=== PATIENT | female | born 1990 | race Caucasian/White ===

== ENCOUNTER 2022-11-29 07:39 | Outpatient (OUT) | payer BC, OTHER, SELFPAY ==
[2022-11-29 08:56] LABS: Estimated Average Glucose 82 mg/dL; Glycohemoglobin A1C 4.5 % (4.5-6.2)
== END 2022-11-29 07:40 | disposition home or self-care (01) ==
LOC: LAB 07:42
PROVIDERS: PCP Family Medicine; Visit Provider Family Medicine
DX: R73.9 Hyperglycemia, unspecified (principal)
CPT/HCPCS: 36415; 83036

== ENCOUNTER 2023-12-11 08:09 | Emergency (ER) | payer BC, OTHER, SELFPAY ==
[2023-12-11 08:15] VITALS: BP 131/77; PULSE 74; O2SAT 100; BMI 30.2
--- NOTE | 2023-12-11 08:32 | CT_ITS ---
[address] [address] Patient Name: YOVANI BEACH MRN: [id number] date: 1990 Sex: F Assigned Patient Location: ER Current Patient Location: .[facility] Accession/Order Number: [id number] Exam Date: 12/11/2023 08:54 Report Date: 12/11/2023 09:20 At the request of: MAURICIO ELLISON Procedure: CT abdomen pelvis wo con EXAMINATION: CT abdomen pelvis wo con HISTORY: pain R flank COMPARISON: No relevant comparison available. TECHNIQUE: Axial, Coronal, and Sagittal images were obtained without and/or with IV contrast as indicated by examination type. Dose reduction techniques were achieved by using automated exposure control and/or adjustment of mA and/or kV according to patient size and/or use of iterative reconstruction technique. FINDINGS: LUNG BASES: No visible pulmonary or pleural disease. LIVER: Stable anterior hepatic lobe cyst. No enlargement, atrophy, suspicious density, or significant focal lesion. BILIARY: No dilatation or calcification. PANCREAS: No lesion, fluid collection, or abnormal duct dilatation. SPLEEN: No enlargement or focal lesion. ADRENALS: No mass or enlargement. KIDNEYS: Mild right hydronephrosis secondary to a partially obstructing 4 x 4 x 3 mm stone within the proximal ureter. Nonobstructing 1-2 mm stone within the right and left kidney. BOWEL/MESENTERY: No visible mass, obstruction, or bowel wall thickening. AORTA/VASCULAR: No aneurysm or dissection. RETROPERITONEUM: No mass or adenopathy. LYMPH NODES: No adenopathy. URINARY BLADDER: No visible focal wall thickening, lesion, or calculus. PELVIC ORGANS: No visible mass. Pelvic organs appropriate for patient age. ABDOMINAL WALL: No mass or hernia. BONES: No bony lesion or fracture. OTHER: Negative. CT/CT abdomen pelvis wo con IMPRESSION: 1. Mild right hydronephrosis secondary to partially obstructing 4 mm stone within the proximal ureter. 2. In addition there is a nonobstructing 1-2 mm stone within the right kidney and within the left kidney. Electronically authenticated by: MELISSA HAYS Date: 12/11/2023 09:20
[2023-12-11] MEDS: ONDANSETRON PF 4 MG/2 ML VIAL IV (08:42)
[2023-12-11] MEDS: KETOROLAC TROMETHAMINE 30 MG/ML VIAL 15 MG IVP ×2 (08:42→09:53)
[2023-12-11 08:47] LABS: Basophils Percent Auto 0.7 % (0.2-2.0); Eosinophils Absolute Auto 0.1 10^3/uL (0.0-0.7); Eosinophils Percent Auto 1.6 % (0.9-7.0); Hematocrit 42.5 % (36.0-48.0); Hemoglobin 15.1 g/dL (12.0-16.0); Immature Granulocytes Abs Auto 0.01 10^3/uL (0.00-0.03); Immature Granulocytes Pct Auto 0.2 % (0.0-0.5); Lymphocytes Absolute Auto 1.8 10^3/uL (1.2-3.8); Lymphocytes Percent Auto 41.4 % (20.5-60.0); Mean Corpuscular HGB Conc 35.5 g/dL (29.9-35.2); Mean Corpuscular Hemoglobin 33.6 pg (26.7-34.0); Mean Corpuscular Volume 94.4 fL (81.0-99.0); Mean Platelet Volume 10.3 fL (9.5-13.5); Monocytes Absolute Auto 0.4 10^3/uL (0.3-0.8); Neutrophils Percent Auto 47.1 % (43.0-75.0); Platelet Count 232 10^3/uL (150-450); Red Cell Distribution Width 12.5 % (11.0-15.0); White Blood Count 4.3 10^3/uL (4.0-11.0)
[2023-12-11 09:02] VITALS: TEMP 36.5
[2023-12-11 09:02] LABS: Alanine Aminotransferase 21 U/L (14-59); Albumin Globulin Ratio 1.5; Albumin Level 4.1 g/dL (3.4-5.0); Alkaline Phosphatase 46 U/L (46-116); Anion Gap 14.4; Aspartate Amino Transferase 14 U/L (15-37); BUN Creatinine Ratio 4.4; Bilirubin Total 0.7 mg/dL (0.2-1.0); Calcium 9.5 mg/dL (8.5-10.1); Chloride 106 mmol/L (98-107); Estimated GFR (African America >60 (>=60 mL/min/1.73m^2); Estimated GFR (Non-African Ame >60 (>=60 mL/min/1.73m^2); Globulin 2.8 g/dL; Glucose 88 mg/dL (74-106); Potassium 3.4 mmol/L (3.5-5.1); Sodium 141 mmol/L (136-145); Total Protein 6.9 g/dL (6.4-8.2)
--- NOTE | 2023-12-11 09:46 | ED.ABDPAIN1 ---
HPI - Abdominal Pain General Chief Complaint: Abdominal Pain Stated Complaint: ABDOMINAL PAIN Time Seen by Provider: 12/11/23 08:12 Source: patient Mode of arrival: walk-in Related Data Previous Rx's ?Medication ?Instructions ?Recorded ondansetron 4 mg disintegrating 4 mg PO DAILY PRN nausea and 12/11/23 tablet vomiting #15 tabs oxycodone-acetaminophen 5 mg-325 1 tab PO Q6H #14 tabs 12/11/23 mg tablet (Percocet) Allergies Allergy/AdvReac Type Severity Reaction Status Date / Time No Known Drug Allergies Allergy Verified 12/11/23 08:18 PFSH PFSH Social History Little interest or pleasure in doing things: not at all Feeling down, depressed, or hopeless: not at all Exam Constitutional Vital Signs, click to edit/add: Last Vital Signs Temp 97.7 F 12/11/23 09:02 Pulse 74 12/11/23 08:15 Resp 20 12/11/23 08:15 BP 131/77 12/11/23 08:15 Pulse Ox 100 12/11/23 08:15 Course Vital Signs Vital signs: Vital Signs Pulse Rate 74 12/11/23 08:15 Respiratory Rate 20 12/11/23 08:15 Blood Pressure 131/77 12/11/23 08:15 Pulse Oximetry 100 12/11/23 08:15 Temperature 97.7 F 12/11/23 09:02 Pulse Rate 74 12/11/23 08:15 Respiratory Rate 20 12/11/23 08:15 Blood Pressure 131/77 12/11/23 08:15 Pulse Oximetry 100 12/11/23 08:15 MDM - Abdominal Pain Lab Data Labs: Lab Results 12/11/23 Range/Units 08:40 WBC 4.3 (4.0-11.0) 10^3/uL RBC 4.50 (4.20-5.40) 10^6/uL Hgb 15.1 (12.0-16.0) g/dL Hct 42.5 (36.0-48.0) % MCV 94.4 (81.0-99.0) fL MCH 33.6 (26.7-34.0) pg MCHC 35.5 H (29.9-35.2) g/dL RDW 12.5 (11.0-15.0) % Plt Count 232 (150-450) 10^3/uL MPV 10.3 (9.5-13.5) fL Neut % (Auto) 47.1 (43.0-75.0) % Lymph % (Auto) 41.4 (20.5-60.0) % [place] % (Auto) 9.0 (1.7-12.0) % Eos % (Auto) 1.6 (0.9-7.0) % Baso % (Auto) 0.7 (0.2-2.0) % Neut # (Auto) 2.0 (1.4-6.5) 10^3/uL Lymph # (Auto) 1.8 (1.2-3.8) 10^3/uL [place] # (Auto) 0.4 (0.3-0.8) 10^3/uL Eos # (Auto) 0.1 (0.0-0.7) 10^3/uL Baso # (Auto) 0.0 (0.0-0.1) 10^3/uL Abs Immat Gran (auto) 0.01 (0.00-0.03) 10^3/uL Imm/Tot Granulo (auto) 0.2 (0.0-0.5) % Sodium 141 (136-145) mmol/L Potassium 3.4 L (3.5-5.1) mmol/L Chloride 106 (98-107) mmol/L Carbon Dioxide 24.0 (21.0-32.0) mmol/L Anion Gap 14.4 BUN 4.0 L (7.0-18.0) mg/dL Creatinine 0.90 (0.55-1.02) mg/dL Est GFR ( Amer) >60 (>=60 mL/min/1.73m^2) Est GFR (Non-Af Amer) >60 (>=60 mL/min/1.73m^2) BUN/Creatinine Ratio 4.4 Glucose 88 (74-106) mg/dL Calcium 9.5 (8.5-10.1) mg/dL Total Bilirubin 0.7 (0.2-1.0) mg/dL AST 14 L (15-37) U/L ALT 21 (14-59) U/L Alkaline Phosphatase 46 (46-116) U/L Total Protein 6.9 (6.4-8.2) g/dL Albumin 4.1 (3.4-5.0) g/dL Globulin 2.8 g/dL Albumin/Globulin Ratio 1.5 Discharge Plan Discharge Chief Complaint: Abdominal Pain Clinical Impression: Calculus of kidney Patient Disposition: Home, Self-Care Time of Disposition Decision: 09:46 Condition: Good Mode of Transportation: Private Vehicle Prescriptions / Home Meds: New oxycodone-acetaminophen [Percocet] 5-325 mg tablet 1 tab PO Q6H Qty: 14 0RF ondansetron 4 mg tablet,disintegrating 4 mg PO DAILY PRN (Reason: nausea and vomiting) Qty: 15 0RF Print Language: Indonesian Instructions: Kidney Stones (ED) Referrals: MARK ZARAGOZA [Primary Care Provider] - 1 week Yuly Mederos MD [Physician] - 1 week
== END 2023-12-11 10:18 | disposition home or self-care (01) ==
PROVIDERS: Emergency Provider Emergency Medicine; PCP Family Medicine
DX: N20.0 Calculus of kidney (principal)
CPT/HCPCS: 36415; 74176; 80053; 85025; 96374; 96375; 96376; 99284; J1885; J2405

== ENCOUNTER 2024-01-02 20:54 | Emergency (ER) | payer OTHER, SELFPAY ==
[2024-01-02 21:00] VITALS: BP 136/95; PULSE 110; TEMP 36.7; O2SAT 98; BMI 29.3
--- NOTE | 2024-01-02 21:08 | CT_ITS ---
The [address] [address] Patient Name: YOVANI BEACH MRN: [id number] date: 1990 Sex: F Assigned Patient Location: ER Current Patient Location: Accession/Order Number: [id number] Exam Date: 01/02/2024 22:03 Report Date: 01/02/2024 22:49 At the request of: GENTRY AUGUST Procedure: CT abdomen pelvis wo con CT ABDOMEN PELVIS WITHOUT CONTRAST HISTORY: Acute right flank pain. History of renal stones. Symptoms x1-2 days radiating to groin. COMPARISON: CT abdomen and pelvis without 12/11/2023. TECHNIQUE: Thin section axial CT images were obtained from the lung bases to the pubis symphysis. This CT exam was performed using one or more of the following dose reduction techniques: Automated exposure control, adjustment of the mA and/or kV according to patient size, or use of iterative reconstruction technique. Thin section coronal and sagittal images were reconstructed from the axial data set. All images were reviewed and interpreted. CONTRAST: None. FINDINGS: Assessment of solid organs is limited without the benefit of IV contrast. LUNG BASES: The lung bases are clear. GE JUNCTION AND STOMACH: Negative. No hiatal hernia. LIVER: Stable simple left hepatic lobe cyst measures 1.9 cm maximum. Liver otherwise negative. GALLBLADDER AND BILIARY TREE: Normal gallbladder. SPLEEN: Negative. PANCREAS: Negative. ADRENALS: Negative. KIDNEYS AND URETERS: Right: There is a small 2 mm nonobstructing calculus again seen upper pole calyx right kidney and another measuring less than 1 mm lower pole calyx on the right. No obvious right hydronephrosis. There is a calcification at the base of the bladder or possibly right UVJ which was not seen in this region on 12/11/2023, but was noted within the proximal right ureter and appears to have passed distally measuring 3 to 4 mm. Slight asymmetric prominence of right ureter. Correlate with urinalysis. No right renal mass or cyst. Left: Suggestion of punctate less than 200 size calculus in lower pole calyx left kidney. Left kidney otherwise negative. No left hydronephrosis. No left ureteral calculus. No left renal mass or cyst. SMALL BOWEL: Negative. LARGE BOWEL: Negative. APPENDIX: Negative. AORTA: The abdominal aorta is normal size. IVC: Negative. LYMPH NODES: There is no lymphadenopathy. BLADDER: As stated above, is a 2.5 mm calculus at either bladder base of right UVJ which was not seen on 12/11/2023 study. The passing right ureteral calculus. Correlate with symptoms and urinalysis. BONES: Unremarkable. COMMENTS: No ascites or free air. CT/CT abdomen pelvis wo con IMPRESSION: 1. Previously noted stone on study from 12/11/2023 within the proximal right ureter appears to have passed distally now located either right UVJ or possibly just passed into bladder. There is no significant right hydronephrosis at this time. Correlate with urinalysis and urine straining to assess chemical nature of stone. 2. There is some additional stable punctate calculi in calyces right kidney, one at upper pole and one lower pole as discussed. 3. Punctate calculus at lower pole calyx left kidney. No left hydronephrosis or ureteral calculus. Electronically authenticated by: OLU OCHOA Date: 01/02/2024 22:49
[2024-01-02 21:26] LABS: Bilirubin Urine NEGATIVE (NEGATIVE); Blood Urine LARGE (NEGATIVE); Clarity Urine CLEAR (CLEAR); Color Urine LT. YELLOW (YELLOW); Glucose Urine UA NEGATIVE (NEGATIVE); Ketones Urine NEGATIVE (NEGATIVE); Leukocyte Esterase Urine NEGATIVE (NEGATIVE); Nitrite Urine NEGATIVE (NEGATIVE); Protein Urine NEGATIVE (NEG/TRACE); Specific Gravity Urine <=1.005 (1.005-1.025); Urobilinogen Urine 0.2 EU/dL (0.2-1.0)
[2024-01-02 21:27] LABS: Urine Microscopic Indicated YES
[2024-01-02 21:28] LABS: HCG Qualitative Urine* NEGATIVE (NEGATIVE); Internal Control Within Normal Limits
--- NOTE | 2024-01-02 21:28 | ED.GENADUL1 ---
Documented by User: HANS Rebollar 01/02/24 21:32 HPI HPI - General Adult General Chief complaint: Urogenital-Female Stated complaint: POSS KIDNEY STONE Time Seen by Provider: 01/02/24 20:55 Source: patient Mode of arrival: walk-in Limitations: no limitations History of Present Illness HPI narrative: Patient is a 33-year-old female who returns to the emergency department 1 month after being diagnosed with a right proximal ureter stone. She was seen in this emergency department about 1 month ago, she was found to have an obstructing stone in the proximal ureter and was placed on pain medication and Flomax and referred to urology. She states no one from the office ever called her back to schedule an appointment and her pain started to subside. She states she has continued to have urinary pressure and frequency since she was seen in this ER 1 month ago. She states within the last week pain has continued to increase in the right flank and right lower abdomen. She states she feels sharp stabbing pain in the vagina. She has no concern for . She has not had any fevers or vomiting. Related Data Previous Rx's ?Medication ?Instructions ?Recorded ondansetron 4 mg disintegrating 4 mg PO DAILY PRN nausea and 12/11/23 tablet vomiting #15 tabs oxycodone-acetaminophen 5 mg-325 1 tab PO Q6H #14 tabs 12/11/23 mg tablet (Percocet) tamsulosin 0.4 mg capsule (Flomax) 0.4 mg PO DAILY #14 caps 12/11/23 ondansetron 4 mg disintegrating 4 mg PO Q6H PRN nausea and 01/02/24 tablet vomiting #20 tabs oxycodone-acetaminophen 5 mg-325 1 tab PO Q6H PRN pain 5 days #20 01/02/24 mg tablet (Percocet) tabs Allergies Allergy/AdvReac Type Severity Reaction Status Date / Time atomoxetine (From Strattera) AdvReac Mild Gastrointestinal Verified 01/02/24 21:06 Upset Opioid HPI Opioid Management Most Recent Opioid Data: Last Pain Scale 8 01/02/24 21:28 01/02/24 Review of Systems ROS Constitutional Denies: fever or chills Ears, nose, mouth, and throat Denies: throat pain or nasal congestion Cardiovascular Denies: chest pain Respiratory Denies: shortness of breath Gastrointestinal Reports: abdominal pain; Denies: nausea or vomiting Genitourinary Reports: painful urination, urinary frequency and urinary urgency Musculoskeletal Reports: back pain; Denies: neck pain Integumentary/Breast Denies: rash Neurological Denies: numbness in extremities or weakness in extremities Hematologic/Lymphatic Denies: easy bruising or easy bleeding PFSH PFS Social History Little interest or pleasure in doing things: not at all Feeling down, depressed, or hopeless: not at all Exam Narrative Exam Narrative: Gen.: Awake, alert, in no distress Head: Normocephalic, atraumatic ENT: Moist mucous membranes Respiratory: No respiratory distress, lungs clear bilaterally Cardio: Regular rate and rhythm Back: Diffuse right flank tenderness Gastrointestinal: Abdomen is soft, nondistended and nontender to palpation Extremities: Moves extremities equally Psych: Normal mood and affect Neuro: No focal neuro deficit Skin: Warm, dry, intact Constitutional Vital Signs, click to edit/add: Last Vital Signs Temp 98.0 F 01/02/24 21:00 Pulse 110 H 01/02/24 21:00 Resp 20 01/02/24 21:00 BP 136/95 H 01/02/24 21:00 Pulse Ox 98 01/02/24 21:00 O2 Del Method Room Air 01/02/24 21:00 Course Vital Signs Vital signs: Vital Signs Temperature 98.0 F 01/02/24 21:00 Pulse Rate 110 H 01/02/24 21:00 Respiratory Rate 20 01/02/24 21:00 Blood Pressure 136/95 H 01/02/24 21:00 Pulse Oximetry 98 01/02/24 21:00 Oxygen Delivery Method Room Air 01/02/24 21:00 Temperature 98.0 F 01/02/24 21:00 Pulse Rate 110 H 01/02/24 21:00 Respiratory Rate 20 01/02/24 21:00 Blood Pressure 136/95 H 01/02/24 21:00 Pulse Oximetry 98 01/02/24 21:00 Oxygen Delivery Method Room Air 01/02/24 21:00 Medical Decision Making MDM Narrative Medical decision making narrative: 2130: Patient ordered to have IV placement, Dilaudid, Toradol and Zofran for pain. Laboratory studies, urine specimen ordered and the patient will undergo repeat CT scanning to reevaluate her right flank pain. Results are pending at this time and case is turned over to attending physician for disposition. SHARED APC VISIT, PHYSICIAN ATTESTATION: [id number] I performed a substantive part of the MDM during the patient?s E/M visit. I personally evaluated and examined the patient. I personally made or approved the documented management plan and acknowledge its risk of complications. Medical Records Medical records reviewed: Yes I reviewed the patient's medical records Lab Data Lab results reviewed: Yes I reviewed the patient's lab results Labs: Lab Results 01/02/24 01/02/24 Range/Units 21:15 21:26 WBC 6.7 (4.0-11.0) 10^3/uL RBC 4.29 (4.20-5.40) 10^6/uL Hgb 14.3 (12.0-16.0) g/dL Hct 40.2 (36.0-48.0) % MCV 93.7 (81.0-99.0) fL MCH 33.3 (26.7-34.0) pg MCHC 35.6 H (29.9-35.2) g/dL RDW 12.1 (11.0-15.0) % Plt Count 250 (150-450) 10^3/uL MPV 10.1 (9.5-13.5) fL Neut % (Auto) 64.3 (43.0-75.0) % Lymph % (Auto) 25.4 (20.5-60.0) % [place] % (Auto) 8.7 (1.7-12.0) % Eos % (Auto) 0.9 (0.9-7.0) % Baso % (Auto) 0.6 (0.2-2.0) % Neut # (Auto) 4.3 (1.4-6.5) 10^3/uL Lymph # (Auto) 1.7 (1.2-3.8) 10^3/uL [place] # (Auto) 0.6 (0.3-0.8) 10^3/uL Eos # (Auto) 0.1 (0.0-0.7) 10^3/uL Baso # (Auto) 0.0 (0.0-0.1) 10^3/uL Abs Immat Gran (auto) 0.01 (0.00-0.03) 10^3/uL Imm/Tot Granulo (auto) 0.1 (0.0-0.5) % Sodium 143 (136-145) mmol/L Potassium 3.7 (3.5-5.1) mmol/L Chloride 105 (98-107) mmol/L Carbon Dioxide 22.9 (21.0-32.0) mmol/L Anion Gap 18.8 BUN 6.0 L (7.0-18.0) mg/dL Creatinine 0.87 (0.55-1.02) mg/dL Est GFR ( Amer) >60 (>=60 mL/min/1.73m^2) Est GFR (Non-Af Amer) >60 (>=60 mL/min/1.73m^2) BUN/Creatinine Ratio 6.9 Glucose 91 (74-106) mg/dL Lactate 1.7 (0.4-2.0) mmol/L Calcium 9.3 (8.5-10.1) mg/dL Total Bilirubin 0.7 (0.2-1.0) mg/dL AST 11 L (15-37) U/L ALT 17 (14-59) U/L Alkaline Phosphatase 44 L (46-116) U/L Total Protein 6.7 (6.4-8.2) g/dL Albumin 4.0 (3.4-5.0) g/dL Globulin 2.7 g/dL Albumin/Globulin Ratio 1.5 Urine Color Lt. yellow (YELLOW) Urine Clarity Clear (CLEAR) Urine pH 6.0 (5.0-9.0) Ur Specific [place] <=1.005 A (1.005-1.025) Urine Protein Negative (NEG/TRACE) mg/dL Urine Glucose (UA) Negative (NEGATIVE) mg/dL Urine Ketones Negative (NEGATIVE) mg/dL Urine Occult Blood Large A (NEGATIVE) Urine Nitrite Negative (NEGATIVE) Urine Bilirubin Negative (NEGATIVE) Urine Urobilinogen 0.2 (0.2-1.0) EU/dL Ur Leukocyte Esterase Negative (NEGATIVE) Urine RBC 2-5 A (0-2) #/HPF Urine WBC 0-2 A (NONE SEEN) #/HPF Ur Squamous Epith Cells Few A (NONE/RARE) #/LPF Urine Crystals None seen (None Seen) #/HPF Urine Bacteria None seen (NONE SEEN) #/HPF Urine Casts None seen (NONE SEEN) #/LPF Urine Mucus None seen (NONE SEEN) Urine HCG, Qual Negative (NEGATIVE) Imaging Data CT scan - abdomen: Radiologist's impression: ITS Impressions Abdomen/Pelvis CT 01/02/24 21:08 IMPRESSION: 1. Previously noted stone on study from 12/11/2023 within the proximal right ureter appears to have passed distally now located either right UVJ or possibly just passed into bladder. There is no significant right hydronephrosis at this time. Correlate with urinalysis and urine straining to assess chemical nature of stone. 2. There is some additional stable punctate calculi in calyces right kidney, one at upper pole and one lower pole as discussed. 3. Punctate calculus at lower pole calyx left kidney. No left hydronephrosis or ureteral calculus. Electronically authenticated by: OLU OCHOA Date: 01/02/2024 22:49 Discharge Plan Discharge Chief Complaint: Urogenital-Female Clinical Impression: Calculus of kidney Patient Disposition: Home, Self-Care Time of Disposition Decision: 23:00 Condition: Good Mode of Transportation: Private Vehicle Prescriptions / Home Meds: New oxycodone-acetaminophen [Percocet] 5-325 mg tablet 1 tab PO Q6H PRN (Reason: pain) 5 Days Qty: 20 0RF ondansetron 4 mg tablet,disintegrating 4 mg PO Q6H PRN (Reason: nausea and vomiting) Qty: 20 0RF No Action oxycodone-acetaminophen [Percocet] 5-325 mg tablet 1 tab PO Q6H Qty: 14 0RF ondansetron 4 mg tablet,disintegrating 4 mg PO DAILY PRN (Reason: nausea and vomiting) Qty: 15 0RF tamsulosin [Flomax] 0.4 mg capsule 0.4 mg PO DAILY Qty: 14 0RF Print Language: Czech Instructions: Kidney Stones (ED), How to Strain Your Urine (ED) Additional Instructions: Follow-up with your urologist Referrals: MARK ZARAGOZA [Primary Care Provider] - 1 week Documented by User: Patrikc Iniguez MD 01/02/24 23:03 HPI HPI - General Adult General Chief complaint: Urogenital-Female Stated complaint: POSS KIDNEY STONE Time Seen by Provider: 01/02/24 20:55 Related Data Previous Rx's ?Medication ?Instructions ?Recorded ondansetron 4 mg disintegrating 4 mg PO DAILY PRN nausea and 12/11/23 tablet vomiting #15 tabs oxycodone-acetaminophen 5 mg-325 1 tab PO Q6H #14 tabs 12/11/23 mg tablet (Percocet) tamsulosin 0.4 mg capsule (Flomax) 0.4 mg PO DAILY #14 caps 12/11/23 ondansetron 4 mg disintegrating 4 mg PO Q6H PRN nausea and 01/02/24 tablet vomiting #20 tabs oxycodone-acetaminophen 5 mg-325 1 tab PO Q6H PRN pain 5 days #20 01/02/24 mg tablet (Percocet) tabs Allergies Allergy/AdvReac Type Severity Reaction Status Date / Time atomoxetine (From Strattera) AdvReac Mild Gastrointestinal Verified 01/02/24 21:06 Upset Opioid HPI Opioid Management Most Recent Opioid Data: Last Pain Scale 8 01/02/24 21:28 01/02/24 PFSH PFSH Social History Little interest or pleasure in doing things: not at all Feeling down, depressed, or hopeless: not at all Exam Constitutional Vital Signs, click to edit/add: Last Vital Signs Temp 98.0 F 01/02/24 21:00 Pulse 110 H 01/02/24 21:00 Resp 20 01/02/24 21:00 BP 136/95 H 01/02/24 21:00 Pulse Ox 98 01/02/24 21:00 O2 Del Method Room Air 01/02/24 21:00 Course Vital Signs Vital signs: Vital Signs Temperature 98.0 F 01/02/24 21:00 Pulse Rate 110 H 01/02/24 21:00 Respiratory Rate 20 01/02/24 21:00 Blood Pressure 136/95 H 01/02/24 21:00 Pulse Oximetry 98 01/02/24 21:00 Oxygen Delivery Method Room Air 01/02/24 21:00 Temperature 98.0 F 01/02/24 21:00 Pulse Rate 110 H 01/02/24 21:00 Respiratory Rate 20 01/02/24 21:00 Blood Pressure 136/95 H 01/02/24 21:00 Pulse Oximetry 98 01/02/24 21:00 Oxygen Delivery Method Room Air 01/02/24 21:00 Medical Decision Making MDM Narrative Medical decision making narrative: 2130: Patient ordered to have IV placement, Dilaudid, Toradol and Zofran for pain. Laboratory studies, urine specimen ordered and the patient will undergo repeat CT scanning to reevaluate her right flank pain. Results are pending at this time and case is turned over to attending physician for disposition. SHARED APC VISIT, PHYSICIAN ATTESTATION: [id number] I performed a substantive part of the MDM during the patient?s E/M visit. I personally evaluated and examined the patient. I personally made or approved the documented management plan and acknowledge its risk of complications. JK 11:00pm CT per radiologist shows stone passing into the bladder. She is feeling improved and stable to be discharged home and she will follow-up with her urologist. Treatment diagnosis and follow-up were discussed with the patient. Differential Diagnosis Differential Diagnosis: Kidney stone, UTI Lab Data Labs: Lab Results 01/02/24 01/02/24 Range/Units 21:15 21:26 WBC 6.7 (4.0-11.0) 10^3/uL RBC 4.29 (4.20-5.40) 10^6/uL Hgb 14.3 (12.0-16.0) g/dL Hct 40.2 (36.0-48.0) % MCV 93.7 (81.0-99.0) fL MCH 33.3 (26.7-34.0) pg MCHC 35.6 H (29.9-35.2) g/dL RDW 12.1 (11.0-15.0) % Plt Count 250 (150-450) 10^3/uL MPV 10.1 (9.5-13.5) fL Neut % (Auto) 64.3 (43.0-75.0) % Lymph % (Auto) 25.4 (20.5-60.0) % [place] % (Auto) 8.7 (1.7-12.0) % Eos % (Auto) 0.9 (0.9-7.0) % Baso % (Auto) 0.6 (0.2-2.0) % Neut # (Auto) 4.3 (1.4-6.5) 10^3/uL Lymph # (Auto) 1.7 (1.2-3.8) 10^3/uL [place] # (Auto) 0.6 (0.3-0.8) 10^3/uL Eos # (Auto) 0.1 (0.0-0.7) 10^3/uL Baso # (Auto) 0.0 (0.0-0.1) 10^3/uL Abs Immat Gran (auto) 0.01 (0.00-0.03) 10^3/uL Imm/Tot Granulo (auto) 0.1 (0.0-0.5) % Sodium 143 (136-145) mmol/L Potassium 3.7 (3.5-5.1) mmol/L Chloride 105 (98-107) mmol/L Carbon Dioxide 22.9 (21.0-32.0) mmol/L Anion Gap 18.8 BUN 6.0 L (7.0-18.0) mg/dL Creatinine 0.87 (0.55-1.02) mg/dL Est GFR ( Amer) >60 (>=60 mL/min/1.73m^2) Est GFR (Non-Af Amer) >60 (>=60 mL/min/1.73m^2) BUN/Creatinine Ratio 6.9 Glucose 91 (74-106) mg/dL Lactate 1.7 (0.4-2.0) mmol/L Calcium 9.3 (8.5-10.1) mg/dL Total Bilirubin 0.7 (0.2-1.0) mg/dL AST 11 L (15-37) U/L ALT 17 (14-59) U/L Alkaline Phosphatase 44 L (46-116) U/L Total Protein 6.7 (6.4-8.2) g/dL Albumin 4.0 (3.4-5.0) g/dL Globulin 2.7 g/dL Albumin/Globulin Ratio 1.5 Urine Color Lt. yellow (YELLOW) Urine Clarity Clear (CLEAR) Urine pH 6.0 (5.0-9.0) Ur Specific [place] <=1.005 A (1.005-1.025) Urine Protein Negative (NEG/TRACE) mg/dL Urine Glucose (UA) Negative (NEGATIVE) mg/dL Urine Ketones Negative (NEGATIVE) mg/dL Urine Occult Blood Large A (NEGATIVE) Urine Nitrite Negative (NEGATIVE) Urine Bilirubin Negative (NEGATIVE) Urine Urobilinogen 0.2 (0.2-1.0) EU/dL Ur Leukocyte Esterase Negative (NEGATIVE) Urine RBC 2-5 A (0-2) #/HPF Urine WBC 0-2 A (NONE SEEN) #/HPF Ur Squamous Epith Cells Few A (NONE/RARE) #/LPF Urine Crystals None seen (None Seen) #/HPF Urine Bacteria None seen (NONE SEEN) #/HPF Urine Casts None seen (NONE SEEN) #/LPF Urine Mucus None seen (NONE SEEN) Urine HCG, Qual Negative (NEGATIVE) Imaging Data CT scan - abdomen: Radiologist's impression: ITS Impressions Abdomen/Pelvis CT 01/02/24 21:08
[2024-01-02 21:50] LABS: Basophils Percent Auto 0.6 % (0.2-2.0); Eosinophils Absolute Auto 0.1 10^3/uL (0.0-0.7); Eosinophils Percent Auto 0.9 % (0.9-7.0); Hematocrit 40.2 % (36.0-48.0); Hemoglobin 14.3 g/dL (12.0-16.0); Immature Granulocytes Abs Auto 0.01 10^3/uL (0.00-0.03); Immature Granulocytes Pct Auto 0.1 % (0.0-0.5); Lymphocytes Absolute Auto 1.7 10^3/uL (1.2-3.8); Lymphocytes Percent Auto 25.4 % (20.5-60.0); Mean Corpuscular HGB Conc 35.6 g/dL (29.9-35.2); Mean Corpuscular Hemoglobin 33.3 pg (26.7-34.0); Mean Corpuscular Volume 93.7 fL (81.0-99.0); Mean Platelet Volume 10.1 fL (9.5-13.5); Monocytes Absolute Auto 0.6 10^3/uL (0.3-0.8); Monocytes Percent Auto 8.7 % (1.7-12.0); Neutrophils Absolute Auto 4.3 10^3/uL (1.4-6.5); Neutrophils Percent Auto 64.3 % (43.0-75.0); Platelet Count 250 10^3/uL (150-450); Red Blood Count 4.29 10^6/uL (4.20-5.40); Red Cell Distribution Width 12.1 % (11.0-15.0); White Blood Count 6.7 10^3/uL (4.0-11.0)
[2024-01-02] MEDS: HYDROMORPHONE HCL 1 MG/ML CARTRIDGE IV (21:53)
[2024-01-02] MEDS: ONDANSETRON PF 4 MG/2 ML VIAL IV (21:53)
[2024-01-02] MEDS: KETOROLAC TROMETHAMINE 30 MG/ML VIAL IVP (21:53)
[2024-01-02 21:59] LABS: Bacteria Urine NONE SEEN #/HPF (NONE SEEN); Mucus Urine NONE SEEN (NONE SEEN); Squamous Epithelial Cell Urine FEW #/LPF (NONE/RARE); WBC Urine 0-2 #/HPF (NONE SEEN)
[2024-01-02 22:00] LABS: Cast Seen? NONE SEEN #/LPF (NONE SEEN); Crystals Seen? None Seen #/HPF (None Seen)
[2024-01-02 22:11] LABS: Lactate/Lactic Acid 1.7 mmol/L (0.4-2.0)
[2024-01-02 22:13] LABS: Albumin Globulin Ratio 1.5; Alkaline Phosphatase 44 U/L (46-116); Anion Gap 18.8; BUN Creatinine Ratio 6.9; Bilirubin Total 0.7 mg/dL (0.2-1.0); Calcium 9.3 mg/dL (8.5-10.1); Carbon Dioxide 22.9 mmol/L (21.0-32.0); Chloride 105 mmol/L (98-107); Estimated GFR (African America >60 (>=60 mL/min/1.73m^2); Estimated GFR (Non-African Ame >60 (>=60 mL/min/1.73m^2); Globulin 2.7 g/dL; Glucose 91 mg/dL (74-106); Potassium 3.7 mmol/L (3.5-5.1); Sodium 143 mmol/L (136-145); Total Protein 6.7 g/dL (6.4-8.2)
[2024-01-02 22:24] LABS: Alanine Aminotransferase 17 U/L (14-59); Aspartate Amino Transferase 11 U/L (15-37)
[2024-01-02 23:11] VITALS: BP 128/75; PULSE 90; O2SAT 99
== END 2024-01-02 23:11 | disposition home or self-care (01) ==
PROVIDERS: Physician Assistant; Emergency Provider Emergency Medicine; PCP Family Medicine
DX: N20.0 Calculus of kidney (principal)
CPT/HCPCS: 36415; 74176; 80053; 81001; 83605; 84703; 85025; 96374; 96375; 99285; J1171; J1885; J2405